=== PATIENT | male | born 2000 | race Caucasian/White ===

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

== ENCOUNTER 2022-05-31 10:31 | Outpatient (CLI) | payer BC, SELFPAY ==
[2022-05-31 11:04] LABS: Alanine Aminotransferase 11 U/L (6-50); Aspartate Amino Transferase 22 U/L (17-59)
== END 2022-05-31 10:32 | disposition home or self-care (01) ==
LOC: ANHLAB 10:35
PROVIDERS: Visit Provider Podiatrist Foot & Ankle Surgery
DX: B35.1 Tinea unguium (principal)
CPT/HCPCS: 36415; 84450; 84460

== ENCOUNTER 2023-03-25 12:03 | Emergency (ER) | payer BC, SELFPAY ==
[2023-03-25 12:30] VITALS: BP 128/70; PULSE 85; RESP 16; O2SAT 98
[2023-03-25 12:31] VITALS: BP 128/70; PULSE 82; RESP 16; O2SAT 96
--- NOTE | 2023-03-25 12:59 | ED.GENADULT ---
HPI - General Adult General Chief complaint: Unspecified Stated complaint: Fentanyl withdrawal Time Seen by Provider: 03/25/23 12:32 Source: patient, RN notes reviewed and old records reviewed Mode of arrival: ambulatory Limitations: no limitations History of Present Illness HPI narrative: This is a 22 year old male with history of opioid dependency who presents for evaluation of fentanyl withdrawal. Patient states that he last used fentanyl 2 days ago. He states he relapsed on March 07 and stopped using on the . He has been through rehab and detox in the past. He reports difficulty sleeping, mild abdominal and leg aches. He denies nausea, vomiting, fever, chills. diarrhea. HE reports constipation. His parents brought him in for medical evaluation. Related Data Home Medications Medication Instructions Recorded Confirmed enoxaparin 40 mg/0.4 mL 07/26/20 subcutaneous syringe hydroxyzine pamoate 50 mg capsule 07/26/20 Allergies Allergy/AdvReac Type Severity Reaction Status Date / Time No Known Allergies Allergy Verified 07/26/20 16:16 Review of Systems Constitutional: Constitutional: Denies weakness Cardiovascular: Cardiovascular: Denies syncope, Denies rapid heart rate, Denies irregular heart rhythm, Denies leg edema and Denies dyspnea Respiratory: Respiratory: Denies chest congestion, Denies hemoptysis, Denies excessive phlegm production and Denies dyspnea Gastrointestinal: Gastrointestinal: Denies abdominal pain, Denies hematochezia, Denies diarrhea and Denies vomiting Genitourinary: Genitourinary: Denies hematuria, Denies dysuria, Denies penile discharge and Denies testicular pain Musculoskeletal: Musculoskeletal: Reports myalgias, Denies joint swelling, Denies loss of height and Denies muscle weakness Neurologic: Denies syncope, Denies focal weakness and Denies weakness PMFSH Past Medical History Medical History (Updated 03/25/23 @ 14:00 by Jacinta Parnell MD) Opioid dependence Stress Surgical History Surgical History History of orthopedic surgery Social History Social History (Updated 03/25/23 @ 13:08 by Jacinta Parnell MD) Substance use type: marijuana and opiates Other substance usage details: fentanyl Gender identity (if verbalized by the patient): Male Exam Narrative: GENERAL: Well-appearing, well-nourished, and in no acute distress. HEAD: Normocephalic, atraumatic EYES: PERRLA and EOMI, conjunctiva clear without discharge EARS: TM's clear bilaterally without erythema or dullness NOSE: Nares clear, no rhinorrhea or epistaxis THROAT:Mucous membranes moist, Oropharynx normal without erythema, exudate, peritonsillar swelling or fluctuance NECK: Supple, without lymphadenopathy or mass RESPIRATORY: No respiratory distress, Airway patent, Respirations non-labored, Clear to auscultation without rales, rhonchi or wheeze HEART: Regular rate and rhythm. No murmur heard. Normal peripheral pulses. ABDOMEN: Soft, nontender, nondistended, normal active bowel sounds. No masses. No rebound or guarding, No organomegaly. EXTREMITIES: No edema, normal strength with full range of motion. SKIN: Warm, dry, normal color without rash NEURO: Alert and oriented x3. CN 2-12 grossly intact. No focal deficits. PSYCH: Normal mood and affect. Course Reevaluation(s) Reevaluation #1: Patient is well appearing in no acute distress. His parents are at bedside and they states they are looking at treatment centers for patient. Date: 03/25/23 Time: 13:57 Vital Signs Vital signs: Vital Signs Pulse Rate 85 03/25/23 12:30 Respiratory Rate 16 03/25/23 12:30 Blood Pressure 128/70 03/25/23 12:30 Pulse Oximetry 98 03/25/23 12:30 Pulse Rate 77 03/25/23 13:30 Respiratory Rate 14 03/25/23 13:30 Blood Pressure 125/85 03/25/23 13:30 Pulse Oximetry 99 03/25/23 13:30 Oxygen Delivery Room Air 03/25/23 12
[2023-03-25 13:03] LABS: Basophils Absolute Auto 0.1 K/mm3 (0.0-0.1); Basophils Percent Auto 0.6 % (0.2-1.2); Eosinophils Percent Auto 0.2 % (0-4.4); Hemoglobin 15.5 g/dL (14.0-18.0); Immature Granulocyte Absolute 0.02 K/mm3 (0.00-0.031); Immature Granulocyte Percent A 0.2 % (0-0.5); Lymphocytes Absolute Auto 1.85 K/mm3 (0.9-3.2); Mean Corpuscular Hemoglobin 28.5 pg (26-34); Mean Corpuscular Volume 86.6 fl (80-100); Mean Platelet Volume 10.2 fl (7.4-10.4); Monocytes Absolute Auto 0.5 K/mm3 (0.1-0.6); Monocytes Percent Auto 5.1 % (2.6-8.5); Neutrophils Absolute Auto 7.8 K/mm3 (1.3-6.7); Neutrophils Percent Auto 75.9 % (45.5-73.1); Platelet Count Result 270 k/mm3 (150-375); Red Blood Count 5.43 M/mm3 (4.6-6.20); Red Cell Distribution Width 13.4 % (11.5-14.5); White Blood Count 10.3 K/mm3 (4.5-10.0)
[2023-03-25 13:12] LABS: INR 1.1; Prothrombin Time 14.1 Seconds (11.1-14.7)
[2023-03-25 13:13] LABS: Partial Thromboplastin Time 26.9 SECONDS (22.3-36.8)
[2023-03-25 13:14] LABS: Appearance Urine Clear (Clear); Bacteria Urine None Seen /hpf; Bilirubin Urine Negative (Negative); Blood Urine Negative (Negative); Color Urine Yellow (Yellow); Glucose Urine UA Negative (Negative); Ketones Urine Trace mg/dL (Negative); Leukocyte Esterase Ur Negative LEU/UL (Negative); Nitrate Urine Negative (Negative); Non Pathogenic Casts 0-2; Protein Urine Trace mg/dL (Negative); RBC Urine 0-2 /hpf (0-2); Squamous Epithelial Cell Urine None seen /hpf (Few); Urobilinogen Urine 0.2 mg/dL (<2.0); WBC Urine 0-5 /hpf
[2023-03-25] MEDS: SODIUM CHLORIDE 0.9% IV 1,000 ML 999 ML IV CONT (13:14)
[2023-03-25 13:19] LABS: Alanine Aminotransferase 16 U/L (6-50); Alkaline Phosphatase 54 U/L (38-126); Anion Gap 9 mmol/L (8-16); Aspartate Amino Transferase 21 U/L (17-59); Bilirubin,Total 0.5 mg/dL (0.2-1.3); Blood Urea Nitrogen 16 mg/dL (9-20); Calcium 9.6 mg/dL (8.4-10.2); Carbon Dioxide 28 mmol/L (22-30); Chloride 106 mmol/L (98-107); Creatine Kinase 76 U/L (55-170); Estimated CRCL calculation 113 ml/min; Estimated Glomerular Filt Rate > 60; Glucose 104 mg/dL (65-110); Potassium 4.1 mmol/L (3.4-5.0); Sodium 143 mmol/L (137-145)
[2023-03-25 13:20] LABS: Ethanol < 10 mg/dL (<10)
[2023-03-25 13:25] LABS: Amphetamine Screen Urine Negative (Negative); Barbiturate Screen Urine Negative (Negative); Benzodiazepines Screen Urine Negative (Negative); Cannabinoid Screen Urine Positive (Negative); Cocaine Screen Urine Negative (Negative); Methadone Screen Urine Negative (Negative); Opiate Screen Urine Negative (Negative); Phencyclidine Screen Urine Negative (Negative)
[2023-03-25 13:30] VITALS: BP 125/85; PULSE 77; RESP 14; O2SAT 99
[2023-03-25 13:33] LABS: Add Urine Microscopic? YES
[2023-03-25] MEDS: KETOROLAC 30 MG/ML VIAL (*BKC) IV PUSH (14:12)
== END 2023-03-25 14:26 | disposition home or self-care (01) ==
PROVIDERS: Emergency Provider General Practice; PCP Pediatrics
DX: F11.90 Opioid use, unspecified, uncomplicated (principal); F12.90 Cannabis use, unspecified, uncomplicated
CPT/HCPCS: 36415; 80053; 80307; 81001; 82550; 85025; 85610; 85730; 96361; 96374; 99284; J1885; J7030

== ENCOUNTER 2025-05-14 05:50 | Observation (INO) | payer BC, SELFPAY ==
[2025-05-14] VITALS (27 sets, daily range): BP systolic 110–164; BP diastolic 74–103; PULSE 70–131; RESP 16–28; TEMP 36.7–36.9; O2SAT 94–98; BMI 24.5
--- NOTE | ~2025-05-14 | XR_ITS ---
Clinical Indication: Overdose, CPR PA and lateral views of the chest: Comparison: None Findings: The lungs are clear, without evidence of focal consolidation or pleural effusion. Cardiome diastinal silhouette is within normal limits. Bones and soft tissues are unremarkable. Impression: Normal chest. Reviewed, dictated and finalized at location . Impression: Normal chest.
--- NOTE | 2025-05-14 06:02 | ED.OVERDOSE ---
HPI - Overdose General Chief Complaint: Overdose <Everardo Daniels MD - Last Filed: 05/14/25 07:28> Stated Complaint: Overdose/cardiac arrest <Everardo Daniels MD - Last Filed: 05/14/25 07:28> Time Seen by Provider: 05/14/25 06:02 <Everardo Daniels MD - Last Filed: 05/14/25 07:28> History of Present Illness HPI Narrative: 24-year-old male with history of polysubstance abuse and previous fentanyl overdose presenting to the emergency department after a witnessed cardiac arrest with bystander and EMS CPR in progress. Patient had a witnessed cardiac arrest at home after he ingested unknown amounts of substances including cocaine and possibly fentanyl. Patient's family witnessed him have a cardiac rest where he was pulseless and apneic and started bystander CPR until EMS arrived. EMS provided Narcan intranasally mg and continued CPR were then patient began becoming more awake alert and presently is alert x4 answering all questions appropriately. He is complaining of chest pain and initially refused ambulance transfer. He has had previous overdoses in the past but never had a cardiac arrest. Patient is agitated and slightly combative but able to be deescalated. <Everardo Daniels MD - Last Filed: 05/14/25 07:28> Related Data Home Medications: Home Medications ?Medication ?Instructions ?Recorded ?Confirmed ?Last Taken ?Type enoxaparin 40 mg/0.4 mL 07/26/20 Unknown History subcutaneous syringe hydroxyzine pamoate 50 mg capsule 07/26/20 Unknown History <Everardo Daniels MD - Last Filed: 05/14/25 07:28> Allergies/Adverse Reactions: Allergies Allergy/AdvReac Type Severity Reaction Status Date / Time No Known Allergies Allergy Verified 05/14/25 06:02 <Everardo Daniels MD - Last Filed: 05/14/25 07:28> Review of Systems Review of Systems: As reviewed above in HPI <Everardo Daniels MD - Last Filed: 05/14/25 07:28> PMFSH Past Medical History Medical History: Medical History Opioid dependence Stress <Everardo Daniels MD - Last Filed: 05/14/25 07:28> Surgical History Surgical History: Surgical History History of orthopedic surgery <Everardo Daniels MD - Last Filed: 05/14/25 07:28> Social History Social History: Social History Substance use type: marijuana, crack/cocaine, amphetamines, hallucinogens, opiates, painkillers, club/intermediate designer drugs, IV drugs, methamphetamine and prescription drug Other substance usage details: fentanyl Gender identity (if verbalized by the patient): Male <Everardo Daniels MD - Last Filed: 05/14/25 07:28> Exam Narrative: GENERAL: [Well-appearing, well-nourished, and in no acute distress.] HEAD: [Normocephalic, atraumatic.] EYES: [PERRLA and EOMI.] ENT: Nares clear, no rhinorrhea or epistaxis. Mucous membranes moist. NECK: Supple. CHEST: Reproducible tenderness to palpation but no crepitus or overlying bruising. Clear breath sounds throughout HEART: Tachycardic rate, regular rhythm. No murmur heard. [Normal peripheral pulses.] ABDOMEN: [Soft, nondistended], [nontender], [No rigidity or guarding] EXTREMITIES: Normal range of motion. [No edema.] Old ankle deformity to the right lower extremity status post surgery SKIN: Warm, dry, no rash. NEURO: [No focal deficits]. Alert and oriented [x3.] PSYCH: [Normal mood and affect.] <Everardo Daniels MD - Last Filed: 05/14/25 07:28> Course Course Emergency Course: I assumed care of this patient at shift change with pending disposition. Did inform about his lab work and importance of staying in the hospital overnight. Patient finally agreed will admit him to the hospital. <Kamron Magana MD - Last Filed: 05/14/25 08:50> Vital Signs Vital signs: Vital Signs Temperature 36.8 C 05/14/25 05:43 Pulse Rate 131 H 05/14/25 05:43 Respiratory Rate 28 H 05/14/25 05:43 Blood Pressure 153/103 H 05/14/25 05:43 Pulse Oximetry 98 05/14/25 05:43 Oxygen Delivery Room Air 05/14/25 05:43 Temperature 36.8 C 05/14/25 05:43 Pulse Rate 109 H 05/14/25 06:37 Respiratory Rate 18 05/14/25 06:37 Blood Pressure 133/83 05/14/25 06:37 Pulse Oximetry 97 05/14/25 06:37 Oxygen Delivery Room Air 05/14/25 06:05 <Everardo Daniels MD - Last Filed: 05/14/25 07:28> Vital Signs Temperature 36.8 C 05/14/25 05:43 Pulse Rate 131 H 05/14/25 05:43 Respiratory Rate 28 H 05/14/25 05:43 Blood Pressure 153/103 H 05/14/25 05:43 Pulse Oximetry 98 05/14/25 05:43 Oxygen Delivery Room Air 05/14/25 05:43 Temperature 36.8 C 05/14/25 05:43 Pulse Rate 109 H 05/14/25 06:37 Respiratory Rate 18 05/14/25 06:37 Blood Pressure 133/83 05/14/25 06:37 Pulse Oximetry 97 05/14/25 06:37 Oxygen Delivery Room Air 05/14/25 06:05 <Kamron Magana MD - Last Filed: 05/14/25 08:50> MDM - Overdose MDM Narrative Medical decision making narrative: 24-year-old male with history of polysubstance abuse and previous fentanyl overdose presenting to the emergency department after a witnessed cardiac arrest with bystander and EMS CPR in progress. Patient had a witnessed cardiac arrest at home after he ingested unknown amounts of substances including cocaine and possibly fentanyl. Patient's family witnessed him have a cardiac rest where he was pulseless and apneic and started bystander CPR until EMS arrived. EMS provided Narcan intranasally mg and continued CPR were then patient began becoming more awake alert and presently is alert x4 answering all questions appropriately. He is complaining of chest pain and initially refused ambulance transfer. He has had previous overdoses in the past but never had a cardiac arrest. Patient is agitated and slightly combative but able to be deescalated. Patient is mildly hypertensive and tachycardic but awake alert oriented with full neurological function and no focal findings on examination aside from reproducible chest pain with palpation. Given the CPR in progress he likely has some rib fractures or rib contusions. Likely source of arrest is hypoxemic respiratory failure from hypoventilation an apnea from the overdose of suspected opiate/fentanyl. Other consensual causes such as cocaine induced hypertension and ACS also possible. Broad workup ordered this time including CBC, CMP, delta troponins, EKG, chest x-ray multiple views. He was given Toradol and fluids and placed on compliance spec. Patient will require admission to the hospital after workup given that he had a sustained cardiac arrest. Patient care signed over to oncoming ER physician Dr. Magana at 7:00 a.m. pending labs and hospital admission. <Everardo Daniels MD - Last Filed: 05/14/25 07:28> Medical Records Attestation: I reviewed the patient's medical records. <Everarod Daniels MD - Last Filed: 05/14/25 07:28> Lab Data Attestation: I reviewed the patient's lab results. <Everardo Daniels MD - Last Filed: 05/14/25 07:28> Result diagrams: 05/14/25 06:16 05/14/25 06:16 <Everardo Daniels MD - Last Filed: 05/14/25 07:28> Labs: Lab Results 05/14/25 05/14/25 05/14/25 Range/Units 06:16 06:16 06:17 WBC 9.1 (4.5-10.0) K/mm3 RBC 5.57 (4.6-6.20) M/mm3 Hgb 17.0 (14.0-18.0) g/dL Hct 51.2 (42.0-52.0) % MCV 91.9 (80-100) fl MCH 30.5 (26-34) pg MCHC 33.2 (32-36) g/dl RDW 12.2 (11.5-14.5) % Plt Count 261 (150-375) k/mm3 MPV 10.6 H (7.4-10.4) fl Immature Gran % (Auto) 1.1 H (0-0.5) % Neut % (Auto) 65.2 (45.5-73.1) % Lymph % (Auto) 26.5 (18.3-44.2) % [place] % (Auto) 6.6 (2.6-8.5) % Eos % (Auto) 0.2 (0-4.4) % Baso % (Auto) 0.4 (0.2-1.2) % Lymph # (Auto) 2.40 (0.9-3.2) K/mm3 [place] # (Auto) 0.6 (0.1-0.6) K/mm3 Eos # (Auto) 0.0 (0-0.3) K/mm3 Baso # (Auto) 0.0 (0.0-0.1) K/mm3 Abs Immat Gran (auto) 0.10 H (0.00-0.031) K/mm3 Absolute Neuts (auto) 5.9 (1.3-6.7) K/mm3 Absolute Nucleated RBC 0.000 (0.0-0.012) K/mm3 Nucleated RBC % 0.0 (0.0-0.2) % Sodium 142 (137-145) mmol/L Potassium 3.7 (3.4-5.0) mmol/L Chloride 101 (98-107) mmol/L Carbon Dioxide 25 (22-30) mmol/L Anion Gap 16 H (4-12) mmol/L BUN 5 L D (9-20) mg/dL Creatinine 1.23 (0.7-1.3) mg/dL Estim Creat Clear Calc 86 ml/min Estimated GFR > 60 (59 - ) Glucose 176 H (65-110) mg/dL Calcium 9.1 (8.4-10.2) mg/dL Total Bilirubin 0.7 (0.2-1.3) mg/dL AST 111 H (17-59) U/L ALT 112 H (6-50) U/L Alkaline Phosphatase 52 (38-126) U/L Troponin I < 0.012 Cancelled (0.000-0.034) ng/mL Total Protein 8.6 H (6.3-8.2) g/dL Albumin 5.2 H (3.5-5.1) g/dL TSH 7.810 H (0.465-4.680) uIU/mL Urine Color (Yellow) Urine Appearance (Clear) Urine pH (5.0-9.0) Ur Specific [place] (1.001-1.035) Urine Protein (Negative) mg/dL Urine Glucose (UA) (Negative) mg/dL Urine Ketones (Negative) mg/dL Ur Blood (Man) (Negative) Urine Nitrate (Negative) Urine Bilirubin (Negative) Urine Urobilinogen (<2.0) mg/dL Add Ur Microanalysis Leukocyte Esterase Rfl (Negative) MARY/UL Urine RBC (0-2) /hpf Urine WBC (0-3) /hpf Ur Squamous Epith Cells (Few) /hpf Urine Bacteria /hpf Urine Casts Granular Casts (None) /lpf Salicylates < 1.0 L (2-20) mg/dL Acetaminophen < 10 L (10-30) ug/mL Ethyl Alcohol 209 (<10) mg/dL // Range/Units 06:18 WBC (4.5-10.0) K/mm3 RBC (4.6-6.20) M/mm3 Hgb (14.0-18.0) g/dL Hct (42.0-52.0) % MCV (80-100) fl MCH (26-34) pg MCHC (32-36) g/dl RDW (11.5-14.5) % Plt Count (150-375) k/mm3 MPV (7.4-10.4) fl Immature Gran % (Auto) (0-0.5) % Neut % (Auto) (45.5-73.1) % Lymph % (Auto) (18.3-44.2) % [place] % (Auto) (2.6-8.5) % Eos % (Auto) (0-4.4) % Baso % (Auto) (0.2-1.2) % Lymph # (Auto) (0.9-3.2) K/mm3 [place] # (Auto) (0.1-0.6) K/mm3 Eos # (Auto) (0-0.3) K/mm3 Baso # (Auto) (0.0-0.1) K/mm3 Abs Immat Gran (auto) (0.00-0.031) K/mm3 Absolute Neuts (auto) (1.3-6.7) K/mm3 Absolute Nucleated RBC (0.0-0.012) K/mm3 Nucleated RBC % (0.0-0.2) % Sodium (137-145) mmol/L Potassium (3.4-5.0) mmol/L Chloride (98-107) mmol/L Carbon Dioxide (22-30) mmol/L Anion Gap (4-12) mmol/L BUN (9-20) mg/dL Creatinine (0.7-1.3) mg/dL Estim Creat Clear Calc ml/min Estimated GFR (59 - ) Glucose (65-110) mg/dL Calcium (8.4-10.2) mg/dL Total Bilirubin (0.2-1.3) mg/dL AST (17-59) U/L ALT (6-50) U/L Alkaline Phosphatase (38-126) U/L Troponin I (0.000-0.034) ng/mL Total Protein (6.3-8.2) g/dL Albumin (3.5-5.1) g/dL TSH (0.465-4.680) uIU/mL Urine Color Yellow (Yellow) Urine Appearance Clear (Clear) Urine pH 6.5 (5.0-9.0) Ur Specific [place] 1.016 (1.001-1.035) Urine Protein 2+ H (Negative) mg/dL Urine Glucose (UA) Negative (Negative) mg/dL Urine Ketones Negative (Negative) mg/dL Ur Blood (Man) Negative (Negative) Urine Nitrate Negative (Negative) Urine Bilirubin Negative (Negative) Urine Urobilinogen 0.2 (<2.0) mg/dL Add Ur Microanalysis Reviewed Leukocyte Esterase Rfl Negative (Negative) MARY/UL Urine RBC 0-2 (0-2) /hpf Urine WBC 0-5 (0-3) /hpf Ur Squamous Epith Cells None seen (Few) /hpf Urine Bacteria None seen /hpf Urine Casts 11-20 Granular Casts Present (None) /lpf Salicylates (2-20) mg/dL Acetaminophen (10-30) ug/mL Ethyl Alcohol (<10) mg/dL <Everardo Daniels MD - Last Filed: 05/14/25 07:28> Lab Results 05/14/25 05/14/25 05/14/25 Range/Units 06:16 06:16 06:17 WBC 9.1 (4.5-10.0) K/mm3 RBC 5.57 (4.6-6.20) M/mm3 Hgb 17.0 (14.0-18.0) g/dL Hct 51.2 (42.0-52.0) % MCV 91.9 (80-100) fl MCH 30.5 (26-34) pg MCHC 33.2 (32-36) g/dl RDW 12.2 (11.5-14.5) % Plt Count 261 (150-375) k/mm3 MPV 10.6 H (7.4-10.4) fl Immature Gran % (Auto) 1.1 H (0-0.5) % Neut % (Auto) 65.2 (45.5-73.1) % Lymph % (Auto) 26.5 (18.3-44.2) % [place] % (Auto) 6.6 (2.6-8.5) % Eos % (Auto) 0.2 (0-4.4) % Baso % (Auto) 0.4 (0.2-1.2) % Lymph # (Auto) 2.40 (0.9-3.2) K/mm3 [place] # (Auto) 0.6 (0.1-0.6) K/mm3 Eos # (Auto) 0.0 (0-0.3) K/mm3 Baso # (Auto) 0.0 (0.0-0.1) K/mm3 Abs Immat Gran (auto) 0.10 H (0.00-0.031) K/mm3 Absolute Neuts (auto) 5.9 (1.3-6.7) K/mm3 Absolute Nucleated RBC 0.000 (0.0-0.012) K/mm3 Nucleated RBC % 0.0 (0.0-0.2) % Sodium 142 (137-145) mmol/L Potassium 3.7 (3.4-5.0) mmol/L Chloride 101 (98-107) mmol/L Carbon Dioxide 25 (22-30) mmol/L Anion Gap 16 H (4-12) mmol/L BUN 5 L D (9-20) mg/dL Creatinine 1.23 (0.7-1.3) mg/dL Estim Creat Clear Calc 86 ml/min Estimated GFR > 60 (59 - ) Glucose 176 H (65-110) mg/dL Calcium 9.1 (8.4-10.2) mg/dL Total Bilirubin 0.7 (0.2-1.3) mg/dL AST 111 H (17-59) U/L ALT 112 H (6-50) U/L Alkaline Phosphatase 52 (38-126) U/L Troponin I < 0.012 Cancelled (0.000-0.034) ng/mL Total Protein 8.6 H (6.3-8.2) g/dL Albumin 5.2 H (3.5-5.1) g/dL TSH 7.810 H (0.465-4.680) uIU/mL Urine Color (Yellow) Urine Appearance (Clear) Urine pH (5.0-9.0) Ur Specific [place] (1.001-1.035) Urine Protein (Negative) mg/dL Urine Glucose (UA) (Negative) mg/dL Urine Ketones (Negative) mg/dL Ur Blood (Man) (Negative) Urine Nitrate (Negative) Urine Bilirubin (Negative) Urine Urobilinogen (<2.0) mg/dL Add Ur Microanalysis Leukocyte Esterase Rfl (Negative) MARY/UL Urine RBC (0-2) /hpf Urine WBC (0-3) /hpf Ur Squamous Epith Cells (Few) /hpf Urine Bacteria /hpf Urine Casts Granular Casts (None) /lpf Salicylates < 1.0 L (2-20) mg/dL Acetaminophen < 10 L (10-30) ug/mL Ethyl Alcohol 209 (<10) mg/dL / Range/Units 06:18 WBC (4.5-10.0) K/mm3 RBC (4.6-6.20) M/mm3 Hgb (14.0-18.0) g/dL Hct (42.0-52.0) % MCV (80-100) fl MCH (26-34) pg MCHC (32-36) g/dl RDW (11.5-14.5) % Plt Count (150-375) k/mm3 MPV (7.4-10.4) fl Immature Gran % (Auto) (0-0.5) % Neut % (Auto) (45.5-73.1) % Lymph % (Auto) (18.3-44.2) % [place] % (Auto) (2.6-8.5) % Eos % (Auto) (0-4.4) % Baso % (Auto) (0.2-1.2) % Lymph # (Auto) (0.9-3.2) K/mm3 [place] # (Auto) (0.1-0.6) K/mm3 Eos # (Auto) (0-0.3) K/mm3 Baso # (Auto) (0.0-0.1) K/mm3 Abs Immat Gran (auto) (0.00-0.031) K/mm3 Absolute Neuts (auto) (1.3-6.7) K/mm3 Absolute Nucleated RBC (0.0-0.012) K/mm3 Nucleated RBC % (0.0-0.2) % Sodium (137-145) mmol/L Potassium (3.4-5.0) mmol/L Chloride (98-107) mmol/L Carbon Dioxide (22-30) mmol/L Anion Gap (4-12) mmol/L BUN (9-20) mg/dL Creatinine (0.7-1.3) mg/dL Estim Creat Clear Calc ml/min Estimated GFR (59 - ) Glucose (65-110) mg/dL Calcium (8.4-10.2) mg/dL Total Bilirubin (0.2-1.3) mg/dL AST (17-59) U/L ALT (6-50) U/L Alkaline Phosphatase (38-126) U/L Troponin I (0.000-0.034) ng/mL Total Protein (6.3-8.2) g/dL Albumin (3.5-5.1) g/dL TSH (0.465-4.680) uIU/mL Urine Color Yellow (Yellow) Urine Appearance Clear (Clear) Urine pH 6.5 (5.0-9.0) Ur Specific [place] 1.016 (1.001-1.035) Urine Protein 2+ H (Negative) mg/dL Urine Glucose (UA) Negative (Negative) mg/dL Urine Ketones Negative (Negative) mg/dL Ur Blood (Man) Negative (Negative) Urine Nitrate Negative (Negative) Urine Bilirubin Negative (Negative) Urine Urobilinogen 0.2 (<2.0) mg/dL Add Ur Microanalysis Reviewed Leukocyte Esterase Rfl Negative (Negative) MARY/UL Urine RBC 0-2 (0-2) /hpf Urine WBC 0-5 (0-3) /hpf Ur Squamous Epith Cells None seen (Few) /hpf Urine Bacteria None seen /hpf Urine Casts 11-20 Granular Casts Present (None) /lpf Salicylates (2-20) mg/dL Acetaminophen (10-30) ug/mL Ethyl Alcohol (<10) mg/dL <Kamron Magana MD - Last Filed: 05/14/25 08:50> Imaging Data Attestation: I personally reviewed and interpreted this imaging study as follows: <Everardo Daniels MD - Last Filed: 05/14/25 07:28> My impression: Impressions Chest X-Ray 05/14/25 06:37 Impression: Normal chest. <Everardo Daniels MD - Last Filed: 05/14/25 07:28> Discharge Plan Discharge Clinical Impression: Cardiac arrest Drug overdose Qualifiers: Encounter type: initial encounter Injury intent: accidental or unintentional Qualified Code(s): T50.901A - Poisoning by unspecified drugs, medicaments and biological substances, accidental (unintentional), initial encounter Cocaine intoxication Qualifiers: Complication of substance-induced condition: uncomplicated Qualified Code(s): F14.920 - Cocaine use, unspecified with intoxication, uncomplicated Opiate overdose Qualifiers: Encounter type: initial encounter Injury intent: accidental or unintentional Qualified Code(s): T40.601A - Poisoning by unspecified narcotics, accidental (unintentional), initial encounter Alcohol intoxication Qualifiers: Complication of substance-induced condition: uncomplicated Qualified Code(s): F10.920 - Alcohol use, unspecified with intoxication, uncomplicated <Everardo Daniels MD - Last Filed: 05/14/25 07:28> Patient Disposition: Still a Patient <Everardo Daniels MD - Last Filed: 05/14/25 07:28> Condition: Serious <Everardo Daniels MD - Last Filed: 05/14/25 07:28> Patient Language: [place] <Everardo Daniels MD - Last Filed: 05/14/25 07:28> Prescriptions: No Action hydroxyzine pamoate 50 mg capsule enoxaparin 40 mg/0.4 mL syringe hydrocodone-acetaminophen [[place]] 5-325 mg tablet 1 tablet PO Q4H PRN (Reason: pain) Qty: 10 0RF hydroxyzine HCl 50 mg tablet 50 mg PO Q6H PRN (Reason: anxiety) Qty: 10 0RF ondansetron 4 mg tablet,disintegrating 4 mg PO Q6H PRN (Reason: nausea and vomiting) Qty: 10 0RF naproxen 500 mg tablet 500 mg PO BID PRN (Reason: pain) Qty: 10 0RF <Everardo Daniels MD - Last Filed: 05/14/25 07:28> Follow-up/Referrals: Martine,Carmen Leonard MD [Primary Care Provider] - <Everardo Daniels MD - Last Filed: 05/14/25 07:28> Time of Disposition: 08:50 <Everardo Daniels MD - Last Filed: 05/14/25 07:28> 08:50 <Kamron Magana MD - Last Filed: 05/14/25 08:50>
--- NOTE | 2025-05-14 06:04 | ECG_ITS ---
Test Date: 2025-05-14 05:58:21 Measurements Intervals [place] Rate: 120 P: 34 NC: 116 QRS: 66 QRSD: 86 T: 22 QT: 321 QTc: 454 Interpretive Statements SINUS TACHYCARDIA WITH SHORT NC INTERVAL NONSPECIFIC T-WAVE ABNORMALITY ABNORMAL RHYTHM ECG No previous ECG available for comparison Electronically Signed On 05-14-2025 14:41:19 CDT by Fernie Cope M.D.
--- OUTSIDE RECORDS SUMMARY | 2025-05-14 06:10 | XMS_ITS | Patient Health Record ---
Author Organization [facility] Address [address] [place] [address] Care Team Providers Care Sales Representative Groceries Name Role Phone Lashawn Chowdhury Primary Care Provi travis [phone] Allergies No Known Allergies Reason For Referral No Information Medications Medication SIG (Take, Route, Fr equency, Duration) Notes Start Date End Date Status hydrOXYzine HCl 25 MG 1 tablet as needed for anxiety or sleep Orally every 8 hrs; Duration: 30 day(s) 05/16/2021 Active Social History Tobacco Use: Social History Observation Description Date Details (start date - stop date) Current Smoker NA - NA Dont use, Tobacco Use/Smoking Question Answer Notes Are you a current every day smoker Section Notes: Drug/alcohol use Substance Alcohol January 2021 Marijuana December 2020 cocaine 2019 Heroin never Meth opioids Never March 2021 LSD/PCP 2018 IV drugs never OTC/Rx drugs [facility] location- [place] Current home location- [place] with dad, mom lives in [place] Who lives at home? Lives with dad, step mom, step sister Siblings? Children? Relationships? good (2-3 words) Describe childhood- kind of weird, inconsistent (physical/verbal/mental/sexual) Abuse/Trauma - Client denied experiencing any symptoms related to trauma/abuse. 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 Lives with dad, step mom, step sister Siblings? Children? Relationships? good (2-3 words) Describe childhood- kind of weird, inconsistent (physical/verbal/mental/sexual) Abuse/Trauma - Client denied experiencing any symptoms related to trauma/abuse. 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 Lives with dad, step mom, step sister Siblings? Children? Relationships? good (2-3 words) Describe childhood- kind of weird, inconsistent (physical/verbal/mental/sexual) Abuse/Trauma - Client denied experiencing any symptoms related to trauma/abuse. 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 Lives with dad, step mom, step sister Siblings? Children? Relationships? good (2-3 words) Describe childhood- kind of weird, inconsistent (physical/verbal/mental/sexual) Abuse/Trauma - Client denied experiencing any symptoms related to trauma/abuse. 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 Pt tolerated well. Voiced no questions or concerns at present time. Vivitrol 07/13/2021 380 mg Intravenous Therapy Nurse A lkermes. Pt tolerated well. Voiced no questions or concerns at present time. SAMPLE USED due to [employer] insurance. [id number] paperwork filled out and [facility] Vivitrol 08/10/2021 380 mg Intravenous Therapy Nurse A lkermes. Pt tolerated well. Voiced no questions or concerns at present time. Medical (General) History Medical History History ICD Code ELIO Opioid use disorder Surgical History Surgery Date(Month/Year) 8 R leg & ankle surgeries skin grafts Hospitalization History Reason Date(Month/Year)
--- OUTSIDE RECORDS SUMMARY | 2025-05-14 06:10 | XMS_ITS | Clinical Summary ---
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 02/28/2019 Social History Tobacco Use Types Packs/Day Years Used Date Smoking Tobacco: Never Smokeless Tobacco: Never Alcohol Use Standard Drinks/Week Comments Yes 0 (1 standard drink = 0.6 oz pure alcohol) evasive on how much and oftern he drinks Sexually Active Control Partners Comments Not Currently Sex and Gender Information Value Date Recorded Sex Assigned at Not on file Legal Sex Male 10:18 AM CDT Gender Identity Not on file Sexual Orientation Not on file Plan of Treatment Health Maintenance Due Date Last Done Comments Hepatitis C Virus (HCV) Screening 2001 Meningococcal B Immunization (1 of 2 - Standard) 2017 SARS-COV-2 Immunization ( season) 2024 04/27/2021, 03/30/2021 Influenza Immunization (#1) 2025 10/19/2005, 1 11/01/2004 Respiratory Syncytial Virus (RSV) Immunization (Adult) (1 - 1-dose 75+ series) 2076 Hepatitis B Immunization Completed 002, 2001, 2001 Pneumococcal Immunization Combined Aged Out 06/25/2002, 2001, 2001, Additional history exists No longer eligible based on patient's age to complete this topic Measles Mumps Rubella (MMR) Immunization Discontinued 04/01/2007, 06/25/2002 Polio (IPV) Immunization Discontinued 007, 09/29/2002, 2001, Additional history exists Varicella Immunization Discontinued 04/01/2007, 2001 Hepatitis A Immunization Discontinued 04/14/2013, 01/2007 Human Papillomavirus (HPV) Immunization Completed 04/25/2018, 07/17/2017, 04/09/2017 Meningococcal Immunization (ACWY) Completed 04/25/2018, 04/14/2013 DTaP/Tdap/Td Immunization Discontinued 2019, 04/14/2013, 04/01/2007, Additional history exists TdaP Immunization Completed 07/21/2020, 04/14/2013 Rotavirus Immunization Aged Out No lo nger eligible based on patient's age to complete this topic Insurance [facility] Care Teams Aircraft 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
[2025-05-14] MEDS: KETOROLAC 15 MG/ML VIAL (*BKC) IV PUSH (06:13)
[2025-05-14] MEDS: LACTATED RINGERS 500 ML 999 ML IV CONT (06:13)
[2025-05-14 06:33] LABS: Hematocrit 51.2 % (42.0-52.0); Hemoglobin 17.0 g/dL (14.0-18.0); Immature Granulocyte Percent A 1.1 % (0-0.5); Lymphocytes Absolute Auto 2.40 K/mm3 (0.9-3.2); Mean Corpuscular HGB Conc 33.2 g/dl (32-36); Mean Corpuscular Hemoglobin 30.5 pg (26-34); Mean Corpuscular Volume 91.9 fl (80-100); Nucleated Red Blood Cells Absolute Auto 0.000 K/mm3 (0.0-0.012); Nucleated Red Blood Cells Perc 0.0 % (0.0-0.2); Platelet Count Result 261 k/mm3 (150-375); Red Blood Count 5.57 M/mm3 (4.6-6.20); White Blood Count 9.1 K/mm3 (4.5-10.0)
[2025-05-14 06:54] LABS: Add Urine Microscopic? YES; Appearance Urine Clear (Clear); Glucose Urine UA Negative (Negative); Leukocyte Esterase Ur Negative LEU/UL (Negative); Need Manual Microscopic Reviewed; Nitrate Urine Negative (Negative); Specific Grav Ur 1.016 (1.001-1.035)
[2025-05-14 06:56] LABS: Alanine Aminotransferase 112 U/L (6-50); Albumin Level 5.2 g/dL (3.5-5.1); Alkaline Phosphatase 52 U/L (38-126); Anion Gap 16 mmol/L (4-12); Aspartate Amino Transferase 111 U/L (17-59); Bilirubin,Total 0.7 mg/dL (0.2-1.3); Blood Urea Nitrogen 5 mg/dL (9-20); Calcium 9.1 mg/dL (8.4-10.2); Carbon Dioxide 25 mmol/L (22-30); Chloride 101 mmol/L (98-107); Estimated CRCL calculation 86 ml/min; Estimated Glomerular Filt Rate > 60; Glucose 176 mg/dL (65-110); Potassium 3.7 mmol/L (3.4-5.0); Sodium 142 mmol/L (137-145); Total Protein 8.6 g/dL (6.3-8.2)
[2025-05-14 06:57] LABS: Acetaminophen < 10 ug/mL (10-30); Salicylate < 1.0 mg/dL (2-20)
[2025-05-14 07:31] LABS: Thyroid Stimulating Hormone 7.810 uIU/mL (0.465-4.680)
[2025-05-14 08:42] LABS: Troponin I < 0.012 ng/mL (0.000-0.034)
[2025-05-14] MEDS: ACETAMINOPHEN 325 MG TABLET 650 MG PO ×3 (09:05→21:26)
[2025-05-14 09:11] LABS: Cannabinoid Screen Urine Positive (Negative)
[2025-05-14] MEDS: ONDANSETRON INJ 4 MG/2 ML VIAL IV PUSH ×2 (09:25→12:43)
--- NOTE | 2025-05-14 09:31 | ECG_ITS ---
Test Date: 2025-05-14 09:37:26 Measurements Intervals [place] Rate: 113 P: 47 SC: 130 QRS: 63 QRSD: 86 T: 41 QT: 304 QTc: 418 Interpretive Statements SINUS TACHYCARDIA POSSIBLE LEFT ATRIAL ENLARGEMENT [-0.1mV P-WAVE IN V1/V2] ABNORMAL RHYTHM ECG Compared to ECG 05/14/2025 05:58:21 Short SC interval no longer present T-wave abnormality no longer present Electronically Signed On 05-14-2025 14:44:00 CDT by Fernie Cope M.D.
--- NOTE | 2025-05-14 10:13 | ADMGEN ---
This patient, Mike Daly, was admitted to IMU Room 205-01 at 1008. Patient/family oriented to hospital policies and general routines including ID bracelet, bed and alarms, visiting hours, pain management, procedures, bathroom and other care routines, personal items, smoking policy, room service/diet, and visiting hours. Information on how to activate the Rapid Response Team has been discussed. Patient/Family are encouraged to report perceived risks to care and to ask questions if they do not understand what they are told or what they should do.
[2025-05-14 10:17] LABS: Troponin I 0.050 ng/mL (0.000-0.034)
[2025-05-14] MEDS: chlordiazePOXIDE (*CRX) 25 MG CAPSULE PO ×2 (11:55→17:38)
[2025-05-14 13:00] LABS: Troponin I 0.059 ng/mL (0.000-0.034)
--- NOTE | 2025-05-14 14:07 | PM.CNCAR ---
Assessment and Plan Assessment and plan (1) Cardiac arrest: Code(s): I46.9 - Cardiac arrest, cause unspecified Status: Acute (2) Drug overdose: Qualifiers: Encounter type: initial encounter Injury intent: accidental or unintentional Qualified Code(s): T50.901A - Poisoning by unspecified drugs, medicaments and biological substances, accidental (unintentional), initial encounter Code(s): T50.901A - Poisoning by unspecified drugs, medicaments and biological substances, accidental (unintentional), initial encounter Status: Acute Plan 24-year-old man who was abusing cocaine and opiates was witnessed by bystander to have gone into cardiac arrest with bystander EMS CPR Cardiac arrest status post ROSC -obtain transthoracic echocardiogram -ECG without evidence of ischemia -likely secondary to respiratory depression Troponin elevation -likely demand related Polysubstance abuse -briefly discuss the need for cessation and the risk of downstream health risk History of Present Illness History of Present Illness Consult date/time: 05/14/25 14:07 Requesting physician: Everardo Daniels MD Reason For Visit: Cardiac Arrest/Drug Over Dose Narrative: 24-year-old man who was abusing cocaine and opiates was witnessed by bystander to have gone into cardiac arrest with bystander EMS CPR. Patient seems to be doing well now with some chest tenderness. Otherwise he denied any syncopal events previously. Previously in middle school and high school he was physically active and participated in soccer without any loss of consciousness or cardiac arrest. His mother confirms this. There is no known family history of cardiac condition. He had no cardiopulmonary limitations to physical activity prior to coming in. EMS provided Narcan during CPR and patient spontaneously woke up in the midst of CPR. Review of Systems Cardiovascular: Cardiovascular: Reports as per HPI Respiratory: Respiratory: Reports as per HPI [facility] Past Medical History Medical History Opioid dependence Stress Surgical History Surgical History History of orthopedic surgery Family History Family History (Updated 05/14/25 @ 10:22 by Amanda Tirado RN) Grandparent Diabetes mellitus Lung cancer Social History Social History Years smoked: 7 Smoking status: Current every day smoker Tobacco type: e-cigarettes/vaping Additional smoking assessment comments: pt vapes Drinks per week: 12 Substance use type: marijuana, crack/cocaine and opiates Other substance usage details: fentanyl Do You Feel Safe in your Home?: Yes Lack of Transportation: No Lack of Food: Never True Current Housing: I Have Housing Concerned About Future Housing: No Difficulty Paying Gas/Electric Bills: No Difficulty Paying for Meds: No Currently Unemployed: No Education: Trade/Vocational Certificate Difficulty w/ Childcare or Family Care: No Gender identity (if verbalized by the patient): Male Spiritual care concerns: No Meds Home Medications and Allergies Home Medications ?Medication ?Instructions ?Recorded ?Confirmed ?Type No Home Medications 05/14/25 05/14/25 History Allergies Allergy/AdvReac Type Severity Reaction Status Date / Time No Known Allergies Allergy Verified 05/14/25 06:02 Vital Signs Vital Signs - 24 hr 05/14/25 05:43 05/14/25 06:02 05/14/25 06:05 Temperature 36.8 C Pulse Rate 131 H Respiratory Rate 28 H 22 H Blood Pressure 153/103 H Pulse Oximetry 98 96 Oxygen Delivery Room Air Room Air 05/14/25 06:05 05/14/25 06:06 05/14/25 06:37 Temperature Pulse Rate 119 H 109 H Respiratory Rate 18 Blood Pressure 133/83 Pulse Oximetry 98 97 Oxygen Delivery Room Air 05/14/25 07:07 05/14/25 07:15 05/14/25 07:16 Temperature Pulse Rate 93 101 H 100 Respiratory Rate 22 H 20 27 H Blood Pressure 140/81 Pulse Oximetry 96 94 97 Oxygen Delivery 05/14/25 07:30 05/14/25 07:31 05/14/25 07:48 Temperature Pulse Rate 104 H 113 H 109 H Respiratory Rate 21 H 22 H 27 H Blood Pressure 140/92 H Pulse Oximetry 97 96 97 Oxygen Delivery 05/14/25 08:01 05/14/25 08:02 05/14/25 08:47 Temperature Pulse Rate 111 H 106 H 93 Respiratory Rate 21 H 23 H 22 H Blood Pressure 135/88 128/76 Pulse Oximetry 98 97 96 Oxygen Delivery 05/14/25 09:41 05/14/25 10:20 05/14/25 11:30 Temperature 36.9 C 36.8 C 36.8 C Pulse Rate 108 H 114 H 104 H Respiratory Rate 23 H 20 20 Blood Pressure 122/77 149/89 H 139/74 Pulse Oximetry 97 96 95 Oxygen Delivery 05/14/25 12:00 05/14/25 12:00 Temperature Pulse Rate 91 Respiratory Rate Blood Pressure Pulse Oximetry Oxygen Delivery Room Air Exam Const: General: comfortable HENMT: Mouth: Yes moist mucous membranes Eyes: EOM: EOMs intact bilaterally Neck: Neck: no JVD Chest: Other: Tenderness Resp: Effort & Inspection: normal respiratory effort Auscultation: clear to auscultation bilaterally Cardio: Rate: regular rate Rhythm: regular rhythm Extrem: Other: Skin graft over right lower extremity from previous tib-fib fracture Results Labs and Meds 05/14/25 06:16 05/14/25 06:16 Lab results: Cardiac Enzymes 05/14/25 05/14/25 05/14/25 Range/Units 06:16 06:16 09:36 AST 111 H (17-59) U/L Troponin I < 0.012 Cancelled 0.050 H* D (0.000-0.034) ng/mL 05/14/25 Range/Units 12:09 AST (17-59) U/L Troponin I 0.059 H* (0.000-0.034) ng/mL CBC 05/14/25 Range/Units 06:16 WBC 9.1 (4.5-10.0) K/mm3 RBC 5.57 (4.6-6.20) M/mm3 Hgb 17.0 (14.0-18.0) g/dL Hct 51.2 (42.0-52.0) % Plt Count 261 (150-375) k/mm3 Lymph # (Auto) 2.40 (0.9-3.2) K/mm3 [place] # (Auto) 0.6 (0.1-0.6) K/mm3 Eos # (Auto) 0.0 (0-0.3) K/mm3 Baso # (Auto) 0.0 (0.0-0.1) K/mm3 Comprehensive Metabolic Panel 05/14/25 Range/Units 06:16 Sodium 142 (137-145) mmol/L Potassium 3.7 (3.4-5.0) mmol/L Chloride 101 (98-107) mmol/L Carbon Dioxide 25 (22-30) mmol/L BUN 5 L D (9-20) mg/dL Creatinine 1.23 (0.7-1.3) mg/dL Glucose 176 H (65-110) mg/dL Calcium 9.1 (8.4-10.2) mg/dL AST 111 H (17-59) U/L ALT 112 H (6-50) U/L Alkaline Phosphatase 52 (38-126) U/L Total Protein 8.6 H (6.3-8.2) g/dL Albumin 5.2 H (3.5-5.1) g/dL Intake and Output 05/13/25 05/14/25 05/14/25 23:59 07:59 15:59 Intake Total 500 Balance 500 Intake: IV 500 Lactated Ringers 500 ml @ 999 500 mls/hr IV CONT .Q31M STA Rx#: [id number] Patient Weight 05/14/25 23:59 Weight 77.5 kg
--- NOTE | 2025-05-14 15:24 | P.HP_ITS ---
H&P: HPI History of Present Illness Date/Time: 05/14/25 15:24 Chief Complaint: Cardiac arrest Narrative: 24-year-old male with history of substance abuse presents to the emergency department with a witnessed cardiac arrest with bystander did not EMS CPR. Patient possibly did cocaine and fentanyl today. EMS provided CPR and Narcan and patient became awake and alert x4. Patient was slightly combative and agit ated. Patient states that he broke his ankle a few years ago it became addicted to narcotics. He states that he went to rehab and was sober for a while. However recently he has been drinking alcohol. He states that he was drinking with some friends when they offered him some cocaine. Has not remember what happened after that. Patient denies symptoms of withdrawal Patient is very nice and grateful to be alive. Lab work in the ED shows elevated liver enzymes, AST 111, ALT 112, troponins 0.012, 0.050, 0.059, TSH 7.810, patient's toxicology screen positive for opioids, cocaine, cannabinoids and ethanol level of 209. Chest x-ray shows normal chest. EKG shows sinus tachycardia with possible atrial enlargement. Patient will be admitted to IMU is he is A&O x4 after cardiac arrest. Review of Systems Review of Systems: 12 systems were reviewed and are negativ e except for as per HPI. [facility] Past Medical History Medical History Opioid dependence Stress Surgical History Surgical History History of orthopedic surgery Family History Family History (Updated 05/14/25 @ 10:22 by Amanda Tirado RN) Grandparent Diabetes mellitus Lung cancer Social History Social History Years smoked: 7 Smoking status: Current every day smoker Tobacco type: e-cigarettes/vaping Additional smoking assessment comments: pt vapes Drinks per week: 12 Substance use type: marijuana, crack/cocaine and opiates Other substance usage details: fentanyl Do You Feel Safe in your Home?: Yes Lack of Transportation: No Lack of Food: Never True Current Housing: I Have Housing Concerned About Future Housing: No Difficulty Paying Gas/Electric Bills: No Difficulty Paying for Meds: No Currently Unemployed: No Education: Trade/Vocational Certificate Difficulty w/ Childcare or Family Care: No Gender identity (if verbalized by the patient): Male Spiritual care concerns: No Meds Home Medications and Allergies Home Medications ?Medication ?Instructions ?Recorded ?Confirmed ?Type No Home Medications 05/14/25 05/14/25 History Allergies Allergy/AdvReac Type Severity Reaction Status Date / Time No Known Allergies Allergy Verified 05/14/25 06:02 Vital Signs Vital Signs - 24 hr 05/14/25 05:43 05/14/25 06:02 05/14/25 06:05 Temperature 98.2 F Pulse Rate 131 H Respiratory Rate 28 H 22 H Blood Pressure 153/103 H Pulse Oximetry 98 96 Oxygen Delivery Room Air Room Air 05/14/25 06:05 05/14/25 06:06 05/14/25 06:37 Temperature Pulse Rate 119 H 109 H Respiratory Rate 18 Blood Pressure 133/83 Pulse Oximetry 98 97 Oxygen Delivery Room Air 05/14/25 07:07 05/14/25 07:15 05/14/25 07:16 Temperature Pulse Rate 93 101 H 100 Respiratory Rate 22 H 20 27 H Blood Pressure 140/81 Pulse Oximetry 96 94 97 Oxygen Delivery 05/14/25 07:30 05/14/25 07:31 05/14/25 07:48 Temperature Pulse Rate 104 H 113 H 109 H Respiratory Rate 21 H 22 H 27 H Blood Pressure 140/92 H Pulse Oximetry 97 96 97 Oxygen Delivery 05/14/25 08:01 05/14/25 08:02 05/14/25 08:47 Temperature Pulse Rate 111 H 106 H 93 Respiratory Rate 21 H 23 H 22 H Blood Pressure 135/88 128/76 Pulse Oximetry 98 97 96 Oxygen Delivery 05/14/25 09:41 05/14/25 10:20 05/14/25 11:30 Temperature 98.5 F 98.2 F 98.2 F Pulse Rate 108 H 114 H 104 H Respiratory Rate 23 H 20 20 Blood Pressure 122/77 149/89 H 139/74 Pulse Oximetry 97 96 95 Oxygen Delivery 05/14/25 12:00 05/14/25 12:00 Temperature Pulse Rate 91 Respiratory Rate Blood Pressure Pulse Oximetry Oxygen Delivery Room Air Exam Narrative: General: well appearing, appears stated age. HEENT: normocephalic, atraumatic. Mucous membranes moist. EOMI, PERRLA, bilateral sclera anicteric, no conjunctival injection. Neck supple without JVD, lymphadenopathy, or bruit. Respiratory: clear to ascultation bilaterally. No rales/rhonic/wheezes. Cardiovascular: Regular rate and rhythm, normal S1-S2 upon ascultation. No murmurs, rubs, or clicks. PMI is nondisplaced, capillary refill less than 3 second. Abdomen: Soft, round, no pulsatile masses, nondistended and nontender. No rebound, no guarding. No CVA tenderness, no hepatosplenomegaly. Bowel sounds present to all four quadrants. No high pitch or tinkling sounds, resonant to percussion. Extremities: No cyanosis, clubbing, or edema present. Pulses are palpable 2/2. Active ROM to all four extremities. Neuro: Alert and orientated x 4. PERRLA. Cranial nerves 2-12 intact without focal deficit. Skin: Warm, dry, and intact, without rash, erythema, or lesion. Psych: pleasant, cooperative, normal speech, normal affect, no hallucinations, no dysarthia H&P: Results Labs Labs: Short CBC 05/14/25 Range/Units 06:16 WBC 9.1 (4.5-10.0) K/mm3 Hgb 17.0 (14.0-18.0) g/dL Hct 51.2 (42.0-52.0) % Plt Count 261 (150-375) k/mm3 [facility] 05/14/25 06:16 Sodium 142 Potassium 3.7 Chloride 101 Carbon Dioxide 25 BUN 5 L D Creatinine 1.23 Glucose 176 H Calcium 9.1 Cardiac Enzymes 05/14/25 05/14/25 05/14/25 Range/Units 06:16 06:16 09:36 Troponin I < 0.012 Cancelled 0.050 H* D (0.000-0.034) ng/mL 05/14/25 Range/Units 12:09 Troponin I 0.059 H* (0.000-0.034) ng/mL Liver Function 05/14/25 Range/Units 06:16 Total Bilirubin 0.7 (0.2-1.3) mg/dL AST 111 H (17-59) U/L ALT 112 H (6-50) U/L Alkaline Phosphatase 52 (38-126) U/L Albumin 5.2 H (3.5-5.1) g/dL Urine // Range/Units 06:18 Urine Color Yellow (Yellow) Urine Appearance Clear (Clear) Urine pH 6.5 (5.0-9.0) Ur Specific [place] 1.016 (1.001-1.035) Urine Protein 2+ H (Negative) mg/dL Urine Glucose (UA) Negative (Negative) mg/dL Assessment and Plan Assessment and plan (1) Cardiac arrest: Code(s): I46.9 - Cardiac arrest, cause unspecified Status: Acute Assessment and Plan: From drug overdose No narcotics while in hospital Tylenol, Toradol and lidocaine patch for pain management Echocardiogram pending Lipid panel (2) Cocaine intoxication: Qualifiers: Complication of substance-induced condition: uncomplicated Qualified Code(s): F14.920 - Cocaine use, unspecified with intoxication, uncomplicated Code(s): F14.929 - Cocaine use, unspecified with intoxication, unspecified Status: Acute Assessment and Plan: Manage withdrawal symptoms Imodium Zofran (3) Alcohol intoxication: Qualifiers: Complication of substance-induced condition: uncomplicated Qualified Code(s): F10.920 - Alcohol use, unspecified with intoxication, uncomplicated Code(s): F10.929 - Alcohol use, unspecified with intoxication, unspecified Status: Acute Assessment and Plan: Liza OSBORNE protocol Ativan Q 2 Care coordination (4) Drug overdose: Qualifiers: Encounter type: initial encounter Injury intent: accidental or unintentional Qualified Code(s): T50.901A - Poisoning by unspecified drugs, medicaments and biological substances, accidental (unintentional), initial encounter Code(s): T50.901A - Poisoning by unspecified drugs, medicaments and biological substances, accidental (unintentional), initial encounter Status: Acute Assessment and Plan: Patient did not intentionally do sentinel it was accidental overdose. Patient offered resources for alcoholic and drug cessation (5) Opiate overdose: Qualifiers: Encounter type: initial encounter Injury intent: accidental or unintentional Qualified Code(s): T40.601A - Poisoning by unspecified narcotics, accidental (unintentional), initial encounter Code(s): T40.601A - Poisoning by unspecified narcotics, accidental (unintentional), initial encounter Status: Acute Assessment and Plan: See plan above Quality VTE Prophylaxis VTE prophylaxis: mechanical ordered and pharmacologic ordered Hospitalist MIPS Advance Care Plan I have confirmed that the patient's Advanced Care Plan is present, code status is documented, or surrogate decision maker is listed in patient medical record.: Yes Medication Reconciliation I have utilized all available resources to obtain, update and review the patients current medications (includes all prescriptions, OTC, herbals, cannabis, and nutritional supplements).: Yes
[2025-05-14] MEDS: THIAMINE HCL INJ 100 MG, FOLIC ACID INJ 1 MG, MAGNESIUM SULFATE INJ 1 GM, MULTIVITAMINS... 125 MG IV CONT (17:37)
[2025-05-14] MEDS: LIDOCAINE 5% PATCH 1 PATCH TRANSDERM (17:38)
[2025-05-14] MEDS: LORazepam (*CRX) 1 MG TABLET 2 MG PO (21:37)
[2025-05-15] VITALS (12 sets, daily range): BP systolic 121–150; BP diastolic 70–85; PULSE 60–109; RESP 18; TEMP 36.6–37.2; O2SAT 97–100
--- NOTE | 2025-05-15 | ECHO_ITS ---
Patient Info Name: Mike Daly Age: 24 years : 2000 Gender: Male Ht: 70 in Wt: 178 lbs BSA: 2.01 m2 HR: 94 bpm BP: 142 / 83 mmHg Heart Rhythm: Sinus Rhythm Technical Quality: Good Exam Date: 05/15/2025 11:17 AM Patient Status: I Admit Date: 05/14/2025 Exam Type: CA echo doppler color flow Complete two-dimensional, color flow and Doppler transthoracic echocardiogram is performed. Staff Referring Physician: Everardo Daniels Business Systems Advisor: Sunitha Atkins Attending Provider: Nikky Rea MD Summary 1. Complete two-dimensional, color flow and Doppler transthoracic echocardiogram is performed. 2. Normal left and right ventricular size and systolic function. 3. Normal appearing cardiac valve. 4. Mild aortic regurgitation. Left Ventricle Left ventricular systolic function is normal, estimated at 65-70. The left ventricular diastolic function is normal. Right Ventricle Right ventricular chamber dimension is normal. Left Atria Left atrial chamber dimension is normal. Right Atria Right atrial chamber dimension is normal. Aortic Valve The aortic valve is normal. There is mild aortic valve regurgitation. Pulmonic Valve The pulmonic valve is normal. Mitral Valve The mitral valve has normal leaflets. Tricuspid Valve The tricuspid valve leaflets are normal. Pericardium/Pleural The pericardium appears normal. Aorta The aortic root size at the sinus of Valsalva is normal. Left Ventricular Outflow Tract Name Value Normal LVOT 2D LVOT Diameter 2.0 cm LVOT Doppler LVOT Peak Velocity 148 cm/s LVOT Peak Gradient 9 mmHg LVOT Mean Gradient 4 mmHg LVOT VTI 24 cm LVOT Stroke Volume 73 ml LVOT CO 6.8 l/min LVOT CI 3.4 l/min/m2 Pulmonic Valve Name Value Normal RVOT Doppler RVOT Peak Velocity 139 cm/s RVOT Peak Gradient 8 mmHg RVOT Mean Gradient 4 mmHg PV Doppler PV Peak Velocity 163 cm/s PV Peak Gradient 10 mmHg PV Mean Gradient 7 mmHg Mitral Valve Name Value Normal MV Diastolic Function MV E Peak Velocity 88 cm/s MV A Peak Velocity 75 cm/s MV E/A 1.2 MV Decel Time (PW) 96 ms MV Annular TDI MV E/e' (Septal) 7.8 MV E/e' (Lateral) 5.9 MV E/e' (Average) 6.9 Aortic Valve Name Value Normal AV Doppler AV Peak Velocity 169 cm/s AV Peak Gradient 11 mmHg AV Area (Cont Eq Randell) 2.6 cm2 AV DI (Randell) 0.87 AV Regurgitation 2D LVOT Area 3.0 cm2 Ventricles Name Value Normal LV Dimensions 2D/MM IVS Diastolic Thickness (2D) 1.2 cm 0.6-1.0 LVID Diastole (2D) 4.6 cm 4.2-5.8 LVIW Diastolic Thickness (2D) 1.0 cm 0.6-1.0 LVID Systole (2D) 3.0 cm 2.5-4.0 LVOT Diameter 2.0 cm LV Mass (2D Cubed) 186.74 g 88.00-224.00 LV Mass Index (2D Cubed) 93 g/m2 49-115 Relative Wall Thickness (2D) 0.44 <=0.42 LV Fractional Shortening/Ejection Fraction 2D/MM LV Fractional Shortening (2D) 34 % 25-43 LV EF (2D Teichholz) 63 % LV Diastolic Volume (4C MOD) 95 ml LV EF (4C MOD) 53 % LV Diastolic Volume (2C MOD) 81 ml LV EF (2C MOD) 52 % LV Diastolic Volume (BP MOD) 93 ml 62-150 LV Diastolic Volume Index (BP MOD) 47 ml/m2 34-74 LV Systolic Volume (BP MOD) 43 ml 21-61 LV Systolic Volume Index (BP MOD) 21 ml/m2 11-31 LV EF (BP MOD) 63 % 52-72 LV Diastolic Length (4C) 8.8 cm LV Systolic Length (4C) 7.3 cm LV Stroke Volume (4C MOD) 50 ml Atria Name Value Normal LA Dimensions LA Volume (4C A-L) 29 ml LA Volume (BP A-L) 35 ml RA Dimensions RA Systolic Major [place] Length (4C) 4.9 cm 2.1-2.7 RA Area (4C) 13.5 cm2 <=18.0 EchoPAC Name Value Normal AutoEF LVCO_BiP_Q (Uljo2UKF) 4.7 l/min LVEF_BiP_Q (Imrp2IZF) 63 % LVSV_BiP_Q (Mofg7CYN) 46 ml LVVED_BiP_Q (Vwqz2FQG) 74 ml LVVES_BiP_Q (Zbrh9GHT) 27 ml HR_4Ch_Q (Kpan9XRW) 113 bpm LVCO_4Ch_Q (Muzf5QXS) 5.4 l/min LVEF_4Ch_Q (Oayc8UOC) 64 % LVLd_4Ch_Q (Jney8HWI) 8.4 cm LVLs_4Ch_Q (Grzu9OCG) 7.1 cm LVSV_4Ch_Q (Uwsx9ZVY) 47 ml LVVED_4Ch_Q (Behp5UZT) 74 ml LVVES_4Ch_Q (Npcy5XMH) 26 ml HR_2Ch_Q (Caxq8MJJ) 94 bpm LVCO_2Ch_Q (Qxyx7BEF) 4.0 l/min LVEF_2Ch_Q (Enfq4UMD) 60 % LVLd_2Ch_Q (Fxwm7UGU) 7.4 cm LVLs_2Ch_Q (Rtrl8RTQ) 6.2 cm LVSV_2Ch_Q (Ujny2LUJ) 43 ml LVVED_2Ch_Q (Xtkt9YCC) 72 ml LVVES_2Ch_Q (Hqwc4EOZ) 29 ml Report Signatures
[2025-05-15] MEDS: chlordiazePOXIDE (*CRX) 25 MG CAPSULE PO ×2 (00:54→05:56)
[2025-05-15 04:19] LABS: Hematocrit 46.7 % (42.0-52.0); Hemoglobin 15.2 g/dL (14.0-18.0); Immature Granulocyte Percent A 0.3 % (0-0.5); Lymphocytes Absolute Auto 2.47 K/mm3 (0.9-3.2); Mean Corpuscular HGB Conc 32.5 g/dl (32-36); Mean Corpuscular Hemoglobin 30.4 pg (26-34); Mean Corpuscular Volume 93.4 fl (80-100); Nucleated Red Blood Cells Absolute Auto 0.000 K/mm3 (0.0-0.012); Nucleated Red Blood Cells Perc 0.0 % (0.0-0.2); Platelet Count Result 209 k/mm3 (150-375); Red Blood Count 5.00 M/mm3 (4.6-6.20); White Blood Count 7.7 K/mm3 (4.5-10.0)
[2025-05-15 04:43] LABS: Anion Gap 10 mmol/L (4-12); Blood Urea Nitrogen 14 mg/dL (9-20); Calcium 9.4 mg/dL (8.4-10.2); Carbon Dioxide 28 mmol/L (22-30); Chloride 101 mmol/L (98-107); Cholesterol 171 mg/dL (0-200); Estimated CRCL calculation 97 ml/min; Estimated Glomerular Filt Rate > 60; Glucose 102 mg/dL (65-110); HDL Direct 58 mg/dL; Potassium 3.7 mmol/L (3.4-5.0); Sodium 139 mmol/L (137-145); Triglycerides 159 mg/dL (<150)
[2025-05-15] MEDS: THIAMINE HCL 100 MG TABLET PO (08:53)
[2025-05-15] MEDS: THERAPEUTIC MULTIVITAMINS/MINERALS TAB (*BKC) 1 TABLET PO (08:53)
[2025-05-15] MEDS: FOLIC ACID 1 MG TABLET PO (08:54)
--- NOTE | 2025-06-06 09:06 | P.DS_ITS ---
DS: Admitting Diagnosis Discharge Date 05/15/25 Admitting Diagnosis Cardiac arrest DS: Summary Hospital Course Hospital Course: left AMA with his parents Time Spent with Patient Time attestation: Total time spent providing and/or coordinating discharge services: Discharge Plan Discharge Consulting providers: Fernie Cope; Kamron Magana; Omaira Krause; Miguel A Escobar; Taiwo Villarreal Discharging Clinician: Nikky Rea Patient Disposition: Home Activity: as tolerated Diet: heart healthy Discharge Instructions: left AMA Patient Language: Bangladeshi Follow-up/Referrals: Martine,Carmen Leonard MD [Primary Care Provider] - Discharge Medications: No Action No Home Medications Date of admission: 05/14/25 08:07 Primary Care Provider: Martine,Carmen Leonard Admitting Provider: Nikky Rea Attending physician on admission: Nikky Rea Condition: Serious
== END 2025-05-15 15:29 | disposition home or self-care (01) ==
LOC: ANHED 07:28 → ANH3MEDSUR 08:55 → ANHIMU 09:33
PROVIDERS: Family Medicine; Nurse Practitioner Gerontology; Admitting Provider Family Medicine; Emergency Provider Student in an Organized Health Care Education/Training Program; PCP Pediatrics; Visit Provider Family Medicine
DX: T40.601A Poisoning by unspecified narcotics, accidental (unintentional), initial encounter (principal); I46.8 Cardiac arrest due to other underlying condition; F14.120 Cocaine abuse with intoxication, uncomplicated; F10.920 Alcohol use, unspecified with intoxication, uncomplicated; R79.89 Other specified abnormal findings of blood chemistry; F17.290 Nicotine dependence, other tobacco product, uncomplicated; R78.4 Finding of other drugs of addictive potential in blood; R00.0 Tachycardia, unspecified
CPT/HCPCS: 36415; 71046; 80048; 80053; 80061; 80143; 80179; 80307; 81001; 82077; 84443; 84484; 85025; 93005; 93306; 96374; 96375; 99285; A9270; G0378; J1885; J2405; J3411; J3475; J7030; J7120